=== PATIENT | male | born 1940 | race Caucasian/White ===

== ENCOUNTER → 2017-05-05 | Outpatient (CLI) | payer MEDICARE ==
[~2017-05-05] MED LIST: ACET325T14 PO; ALPR0.25 PO; AMIO200T42 PO; ASPI-515 PO; CALCIUM PO; CARV3.1212 PO; CARV6.252 PO; CLOP75TA22 PO; ERGO400T2 PO; FAMO20TA37 PO; FAMO20TA7 PO; FOSI10TA PO; FURO-93 PO; HYDR-3138 PO; IRON PO; LISI5TAB7 PO; LOSA50TA6 PO; PANT40TA3 PO; POTA10TA90 PO; RIVA15TA PO; SIMV40TA PO; SPIR25TA PO
== END | disposition home or self-care (01) ==
LOC: CFH 06:45
PROVIDERS: ATTEND Internal Medicine Cardiovascular Disease
DX: I08.3 Combined rheumatic disorders of mitral, aortic and tricuspid valves (principal); I10 Essential (primary) hypertension; E78.5 Hyperlipidemia, unspecified; I25.2 Old myocardial infarction; Z95.810 Presence of automatic (implantable) cardiac defibrillator
CPT/HCPCS: 93306

== ENCOUNTER 2018-06-22 12:00 | Inpatient (IN) | payer MEDICARE ==
[~2018-06-22] VITALS: Ht 167.6 cm; Wt 63.4 kg
[~2018-06-22 12:00] MED LIST changes: -CLOP75TA22 PO; +CLOP75TA52 PO; -HYDR-3138 PO; +HYDR-3237 PO; +POTA10TA6 PO; -POTA10TA90 PO
[2018-06-22] MEDS ORDERED: SODIUM CHLORIDE FLUSH 10ML SYR IVF ONE (12:30)
[2018-06-22] MEDS ORDERED: ALBUTEROL/IPRATROPIUM 2.5MG/0.5MG, 3 ML NPPB PRN (12:30)
[2018-06-22] MEDS ORDERED: ALBUTEROL/IPRATROPIUM 2.5MG/0.5MG, 3 ML ONE (12:41)
[2018-06-22 13:12] LABS: BASOPHILS # (AUTO) 0.04 x10^3/uL (0-0.1); BASOPHILS % (AUTO) 0 % (0-1); EOSINOPHILS # (AUTO) 0.14 x10^3/uL (0-0.4); EOSINOPHILS % (AUTO) 2 % (1-7); LYMPHOCYTES # (AUTO) 1.44 x10^3/uL (1-3.4); LYMPHOCYTES % (AUTO) 17 % (22-44); MD NO; MEAN CORPUSCULAR HEMOGLOBIN 29.9 pg (27.5-34.5); MEAN CORPUSCULAR HGB CONC 32.2 g/dL (33.2-36.2); MEAN PLATELET VOLUME 6.4 fL (7.4-10.4); MONOCYTES # (AUTO) 1.02 x10^3/uL (0.2-0.8); MONOCYTES % (AUTO) 12 % (2-9); NEUTROPHILS # (AUTO) 6.08 x10^3/uL (1.8-6.8); NEUTROPHILS % (AUTO) 70 % (42-75); PLATELET COUNT 360 x10^3/uL (130-400); RED BLOOD COUNT 4.02 x10^6/uL (4.38-5.82); RED CELL DISTRIBUTION WIDTH 13.6 % (9.4-14.8)
[2018-06-22 13:21] LABS: ALANINE AMINOTRANSFERASE 9 U/L (12-78); ALBUMIN 2.2 g/dL (3.4-5.0); ANION GAP 5 mmol/L (5-15); CALCIUM 8.1 mg/dL (8.5-10.1); CHLORIDE 113 mmol/L (98-107); CREATININE 1.42 mg/dL (0.7-1.3)
[2018-06-22 13:25] LABS: ALKALINE PHOSPHATASE 66 U/L (45-117); BILIRUBIN,TOTAL 0.3 mg/dL (0.2-1.0); TOTAL PROTEIN 6.2 g/dL (6.4-8.2); TROPONIN I < 0.015 ng/mL (0.000-0.045)
[2018-06-22] MEDS ORDERED: CEFTRIAXONE PMX 1GM/50ML 50 ML ONE (13:37)
[2018-06-22] MEDS ORDERED: CEFTRIAXONE 1,000 MG in SODIUM CHLORIDE 0.9% 50 ML IVPB ONE (14:00)
[2018-06-22] MEDS ORDERED: AZITHROMYCIN 500 MG in SODIUM CHLORIDE 0.9% 250 ML IVPB ONE (14:00)
[2018-06-22] MEDS ORDERED: SODIUM CHLORIDE FLUSH 10ML SYR IVF PRN (14:00)
[2018-06-22] MEDS ORDERED: CEFTRIAXONE 1,000 MG in SODIUM CHLORIDE 0.9% 50 ML IV SCH (15:00)
[2018-06-22] MEDS ORDERED: ONDANSETRON 2MG/ML, 2ML IVPB PRN (15:00)
[2018-06-22] MEDS ORDERED: PHARMACY MAY ADJ FOR RENAL FX MC PRN ×2 (15:00→15:30)
[2018-06-22] MEDS ORDERED: DOCUSATE 100 MG CAPSULE PO PRN (15:00)
[2018-06-22] MEDS ORDERED: ACETAMINOPHEN 325 MG TABLET PO PRN (15:00)
[2018-06-22] MEDS ORDERED: MAGNESIUM SULFATE PMX 2GM/50ML 50 ML IV ONE (15:30)
[2018-06-22] MEDS ORDERED: ALBUTEROL SULFATE 2.5 MG/3 ML NPPB PRN (16:00)
[2018-06-22 16:56] VITALS: BP 136/77
[2018-06-22] MEDS: DOXYCYCLINE 100 MG in DEXTROSE 5% 250 ML IV SCH (18:07)
[2018-06-22] MEDS: HEPARIN 5,000 UNITS/ML, 1ML INJ SCH (18:09)
[2018-06-22] MEDS: FERROUS GLUCONATE 324 MG TABLET PO SCH ×2 (18:14→20:17)
[2018-06-22] MEDS: GUAIFENESIN 200 MG TABLET PO SCH ×2 (18:14→20:19)
[2018-06-22] MEDS: CALCIUM CITRATE 950 MG TABLET PO SCH ×2 (18:19→20:18)
[2018-06-22] MEDS ORDERED: COLE1TAB2 PO (18:25)
[2018-06-22] MEDS ORDERED: LEVO137T3 PO (18:25)
[2018-06-22] MEDS ORDERED: FLUT1AER INH (18:27)
[2018-06-22] MEDS: ALBUTEROL SULFATE 2.5 MG/3 ML NPPB SCH ×2 (19:17→22:00)
[2018-06-22 20:14] VITALS: BP 118/65
[2018-06-22] MEDS: CHOLECALCIFEROL 400 UNITS TABLET PO SCH (20:18)
[2018-06-22] MEDS: SIMVASTATIN 40 MG TABLET PO SCH (20:20)
[2018-06-22] MEDS: CARVEDILOL 6.25 MG TABLET PO SCH (20:20)
[2018-06-22] MEDS: ZOLPIDEM 5MG TABLET PO PRN (20:36)
[2018-06-23 01:41] VITALS: BP 124/75
[2018-06-23] MEDS: HEPARIN 5,000 UNITS/ML, 1ML INJ SCH ×3 (01:42→17:16)
[2018-06-23] MEDS: GUAIFENESIN 200 MG TABLET PO SCH ×4 (05:19→20:51)
[2018-06-23] MEDS: CALCIUM CITRATE 950 MG TABLET PO SCH ×4 (05:19→20:51)
[2018-06-23] MEDS: DOXYCYCLINE 100 MG in DEXTROSE 5% 250 ML IV SCH ×2 (05:20→17:16)
[2018-06-23 06:00] LABS: BASOPHILS # (AUTO) 0.01 x10^3/uL (0-0.1); BASOPHILS % (AUTO) 0 % (0-1); EOSINOPHILS % (AUTO) 0 % (1-7); LYMPHOCYTES % (AUTO) 16 % (22-44); MD NO; MEAN CORPUSCULAR HEMOGLOBIN 30.1 pg (27.5-34.5); MEAN CORPUSCULAR HGB CONC 32.7 g/dL (33.2-36.2); MEAN CORPUSCULAR VOLUME 92.3 fL (81-97); MEAN PLATELET VOLUME 6.8 fL (7.4-10.4); MONOCYTES % (AUTO) 4 % (2-9); NEUTROPHILS # (AUTO) 5.81 x10^3/uL (1.8-6.8); NEUTROPHILS % (AUTO) 79 % (42-75); PLATELET COUNT 331 x10^3/uL (130-400); RED BLOOD COUNT 3.73 x10^6/uL (4.38-5.82); RED CELL DISTRIBUTION WIDTH 13.6 % (9.4-14.8)
[2018-06-23 06:10] LABS: ANION GAP 6 mmol/L (5-15); CALCIUM 8.2 mg/dL (8.5-10.1); CHLORIDE 112 mmol/L (98-107)
[2018-06-23 06:11] LABS: CREATININE 1.23 mg/dL (0.7-1.3)
[2018-06-23] MEDS: ALBUTEROL SULFATE 2.5 MG/3 ML NPPB SCH ×5 (06:35→22:00)
[2018-06-23 06:57] VITALS: BP 128/76
[2018-06-23] MEDS ORDERED: FUROSEMIDE 20 MG TABLET PO SCH (09:00)
[2018-06-23] MEDS: CARVEDILOL 6.25 MG TABLET PO SCH ×2 (09:07→20:52)
[2018-06-23] MEDS: CHOLECALCIFEROL 400 UNITS TABLET PO SCH ×2 (09:07→20:51)
[2018-06-23] MEDS: CLOPIDOGREL 75 MG TABLET PO SCH (09:07)
[2018-06-23] MEDS: AMIODARONE 200 MG TABLET PO SCH (09:07)
[2018-06-23] MEDS: LOSARTAN 50MG TABLET PO SCH (09:07)
[2018-06-23] MEDS: FERROUS GLUCONATE 324 MG TABLET PO SCH ×3 (09:07→20:52)
[2018-06-23] MEDS: FAMOTIDINE 20 MG TABLET PO SCH (09:08)
[2018-06-23] MEDS: CEFTRIAXONE 1,000 MG in SODIUM CHLORIDE 0.9% 50 ML IV SCH (13:57)
[2018-06-23 14:12] VITALS: BP 125/74
[2018-06-23 20:03] VITALS: BP 141/70
[2018-06-23] MEDS: SIMVASTATIN 40 MG TABLET PO SCH (20:51)
[2018-06-23 21:54] VITALS: BP 138/71
[2018-06-23] MEDS: ZOLPIDEM 5MG TABLET PO PRN (21:55)
[2018-06-24 01:15] VITALS: BP 119/67
[2018-06-24] MEDS: HEPARIN 5,000 UNITS/ML, 1ML INJ SCH ×3 (01:48→17:17)
[2018-06-24] MEDS: GUAIFENESIN 200 MG TABLET PO SCH ×4 (05:36→20:42)
[2018-06-24] MEDS: CALCIUM CITRATE 950 MG TABLET PO SCH ×4 (05:36→20:43)
[2018-06-24] MEDS: DOXYCYCLINE 100 MG in DEXTROSE 5% 250 ML IV SCH (05:36)
[2018-06-24 05:57] LABS: BASOPHILS # (AUTO) 0.02 x10^3/uL (0-0.1); BASOPHILS % (AUTO) 0 % (0-1); EOSINOPHILS # (AUTO) 0.01 x10^3/uL (0-0.4); EOSINOPHILS % (AUTO) 0 % (1-7); LYMPHOCYTES # (AUTO) 1.01 x10^3/uL (1-3.4); LYMPHOCYTES % (AUTO) 8 % (22-44); MD NO; MEAN CORPUSCULAR HEMOGLOBIN 30.6 pg (27.5-34.5); MEAN CORPUSCULAR HGB CONC 32.9 g/dL (33.2-36.2); MEAN CORPUSCULAR VOLUME 92.9 fL (81-97); MEAN PLATELET VOLUME 6.8 fL (7.4-10.4); MONOCYTES # (AUTO) 0.28 x10^3/uL (0.2-0.8); MONOCYTES % (AUTO) 2 % (2-9); NEUTROPHILS % (AUTO) 90 % (42-75); PLATELET COUNT 335 x10^3/uL (130-400); RED BLOOD COUNT 3.78 x10^6/uL (4.38-5.82); RED CELL DISTRIBUTION WIDTH 13.4 % (9.4-14.8)
[2018-06-24 05:58] LABS: ANION GAP 4 mmol/L (5-15); CALCIUM 8.4 mg/dL (8.5-10.1); CHLORIDE 111 mmol/L (98-107)
[2018-06-24 06:52] VITALS: BP 169/73
[2018-06-24] MEDS: ALBUTEROL SULFATE 2.5 MG/3 ML NPPB SCH ×4 (07:30→20:10)
[2018-06-24] MEDS: FERROUS GLUCONATE 324 MG TABLET PO SCH ×3 (09:58→20:46)
[2018-06-24] MEDS: FAMOTIDINE 20 MG TABLET PO SCH (09:58)
[2018-06-24] MEDS: LOSARTAN 50MG TABLET PO SCH (09:58)
[2018-06-24] MEDS: CLOPIDOGREL 75 MG TABLET PO SCH (09:58)
[2018-06-24] MEDS: CHOLECALCIFEROL 400 UNITS TABLET PO SCH ×2 (09:58→20:42)
[2018-06-24] MEDS: CARVEDILOL 6.25 MG TABLET PO SCH ×2 (09:58→20:42)
[2018-06-24] MEDS: AMIODARONE 200 MG TABLET PO SCH (09:59)
[2018-06-24] MEDS: CEFTRIAXONE 1,000 MG in SODIUM CHLORIDE 0.9% 50 ML IV SCH (14:25)
[2018-06-24 15:00] VITALS: BP 145/77
[2018-06-24 20:24] VITALS: BP 148/84
[2018-06-24] MEDS: SIMVASTATIN 40 MG TABLET PO SCH (20:42)
[2018-06-24] MEDS: DOXYCYCLINE 100MG TABLET PO SCH (20:43)
[2018-06-24] MEDS: ZOLPIDEM 5MG TABLET PO PRN (21:46)
[2018-06-25] MEDS: HEPARIN 5,000 UNITS/ML, 1ML INJ SCH ×2 (02:41→10:45)
[2018-06-25 03:51] VITALS: BP 127/68
[2018-06-25] MEDS: CALCIUM CITRATE 950 MG TABLET PO SCH ×2 (05:59→10:45)
[2018-06-25] MEDS: GUAIFENESIN 200 MG TABLET PO SCH ×2 (05:59→10:45)
[2018-06-25] MEDS: ALBUTEROL SULFATE 2.5 MG/3 ML NPPB SCH ×3 (07:00→15:10)
[2018-06-25 08:57] VITALS: BP 146/73
[2018-06-25] MEDS: LOSARTAN 50MG TABLET PO SCH (08:59)
[2018-06-25] MEDS: FERROUS GLUCONATE 324 MG TABLET PO SCH (08:59)
[2018-06-25] MEDS: CHOLECALCIFEROL 400 UNITS TABLET PO SCH (08:59)
[2018-06-25] MEDS: CLOPIDOGREL 75 MG TABLET PO SCH (08:59)
[2018-06-25] MEDS: CARVEDILOL 6.25 MG TABLET PO SCH (09:00)
[2018-06-25] MEDS: FAMOTIDINE 20 MG TABLET PO SCH (09:00)
[2018-06-25] MEDS: AMIODARONE 200 MG TABLET PO SCH (09:00)
[2018-06-25] MEDS: DOXYCYCLINE 100MG TABLET PO SCH (09:00)
[2018-06-25] MEDS ORDERED: CEFD300C37 PO (14:15)
[2018-06-25] MEDS ORDERED: PRED20TA PO (14:15)
[2018-06-25] MEDS ORDERED: DOXY100T PO (14:15)
[2018-06-25 14:19] VITALS: BP 127/72
[2018-06-25] MEDS: CEFTRIAXONE 1,000 MG in SODIUM CHLORIDE 0.9% 50 ML IV SCH (14:20)
== END 2018-06-25 16:45 | disposition home or self-care (01) | DRG 291 ==
LOC: ED 13:20 → EDIP 13:44 → 5SO 16:44
PROVIDERS: ADMIT Hospitalist; ATTEND Hospitalist
DX: I13.0 Hypertensive heart and chronic kidney disease with heart failure and stage 1 through stage 4 chronic kidney disease, or unspecified chronic kidney disease (principal); N17.0 Acute kidney failure with tubular necrosis; J96.01 Acute respiratory failure with hypoxia; I50.21 Acute systolic (congestive) heart failure; J15.9 Unspecified bacterial pneumonia; J44.0 Chronic obstructive pulmonary disease with (acute) lower respiratory infection; E44.0 Moderate protein-calorie malnutrition; J44.1 Chronic obstructive pulmonary disease with (acute) exacerbation; I25.5 Ischemic cardiomyopathy; I25.2 Old myocardial infarction; I48.0 Paroxysmal atrial fibrillation; I73.9 Peripheral vascular disease, unspecified; E74.39 Other disorders of intestinal carbohydrate absorption; M19.90 Unspecified osteoarthritis, unspecified site; D63.8 Anemia in other chronic diseases classified elsewhere; T38.0X5A Adverse effect of glucocorticoids and synthetic analogues, initial encounter; I08.3 Combined rheumatic disorders of mitral, aortic and tricuspid valves; N18.9 Chronic kidney disease, unspecified; D72.829 Elevated white blood cell count, unspecified; I25.10 Atherosclerotic heart disease of native coronary artery without angina pectoris; Z68.22 Body mass index [BMI] 22.0-22.9, adult; Z88.0 Allergy status to penicillin; Z88.8 Allergy status to other drugs, medicaments and biological substances; Z90.49 Acquired absence of other specified parts of digestive tract; Z95.810 Presence of automatic (implantable) cardiac defibrillator; Z87.891 Personal history of nicotine dependence; Z82.49 Family history of ischemic heart disease and other diseases of the circulatory system; Z83.3 Family history of diabetes mellitus; Z85.46 Personal history of malignant neoplasm of prostate; Z87.11 Personal history of peptic ulcer disease; Y92.89 Other specified places as the place of occurrence of the external cause; Z90.79 Acquired absence of other genital organ(s); Z79.899 Other long term (current) drug therapy
CPT/HCPCS: 36415; 71046; 80048; 80053; 83605; 83735; 83880; 84145; 84484; 85025; 87040; 87205; 93005; 93306; 94640; J0456; J0696; J1644; J7060; J7613; J7620; J3475; J7050; J7512

== ENCOUNTER 2018-09-27 10:15 | Inpatient (IN) | payer MEDICARE ==
[~2018-09-27] VITALS: Ht 167.6 cm; Wt 50.0 kg
[~2018-09-27 10:15] MED LIST changes: +CEFD300C37 PO; +COLE1TAB2 PO; +DOXY100T PO; +FLUT1AER INH; +LEVO137T3 PO; -LOSA50TA6 PO; +LOSA50TA7 PO; +PRED20TA PO
[2018-09-27] MEDS ORDERED: SODIUM CHLORIDE FLUSH 10ML SYR IVF ONE (11:00)
[2018-09-27 11:44] LABS: BASOPHILS # (AUTO) 0.01 x10^3/uL (0-0.1); BASOPHILS % (AUTO) 0 % (0-1); EOSINOPHILS % (AUTO) 0 % (1-7); LYMPHOCYTES # (AUTO) 1.13 x10^3/uL (1-3.4); LYMPHOCYTES % (AUTO) 8 % (22-44); MD NO; MEAN CORPUSCULAR HEMOGLOBIN 29.5 pg (27.5-34.5); MEAN CORPUSCULAR HGB CONC 32.9 g/dL (33.2-36.2); MEAN CORPUSCULAR VOLUME 89.5 fL (81-97); MONOCYTES # (AUTO) 0.14 x10^3/uL (0.2-0.8); MONOCYTES % (AUTO) 1 % (2-9); NEUTROPHILS # (AUTO) 12.84 x10^3/uL (1.8-6.8); NEUTROPHILS % (AUTO) 91 % (42-75); PLATELET COUNT 120 x10^3/uL (130-400); RED BLOOD COUNT 4.41 x10^6/uL (4.38-5.82); RED CELL DISTRIBUTION WIDTH 16.3 % (9.4-14.8)
[2018-09-27 11:58] LABS: ALANINE AMINOTRANSFERASE 32 U/L (12-78); ALBUMIN 2.9 g/dL (3.4-5.0); ANION GAP 8 mmol/L (5-15); CALCIUM 8.6 mg/dL (8.5-10.1); CHLORIDE 113 mmol/L (98-107); CREATININE 1.65 mg/dL (0.7-1.3)
[2018-09-27 12:02] LABS: ALKALINE PHOSPHATASE 71 U/L (45-117); TROPONIN I 0.056 ng/mL (0.000-0.045)
[2018-09-27] MEDS ORDERED: PRED20TA PO (13:02)
[2018-09-27] MEDS ORDERED: TRELOGY INH (13:02)
[2018-09-27] MEDS ORDERED: SODIUM CHLORIDE 0.9% 1,000 ML IV SCH (15:04)
[2018-09-27 15:27] VITALS: BP 174/76
[2018-09-27] MEDS ORDERED: POLYETHYLENE GLYCOL 17 GM PACKET PO PRN (15:30)
[2018-09-27] MEDS ORDERED: ACETAMINOPHEN 325 MG TABLET PO PRN (15:30)
[2018-09-27] MEDS ORDERED: ONDANSETRON 2MG/ML, 2ML IVPush PRN (15:30)
[2018-09-27] MEDS ORDERED: BISACODYL 10 MG SUPP PR PRN (15:30)
[2018-09-27] MEDS ORDERED: ONDANSETRON ODT 4 MG PO PRN (15:30)
[2018-09-27] MEDS: HEPARIN 5,000 UNITS/ML, 1ML SQ SCH (16:53)
[2018-09-27] MEDS: SODIUM CHLORIDE 0.9% 1,000 ML IV SCH (16:53)
[2018-09-27] MEDS: hydrALAzine 20 MG/ML, 1ML IVPush PRN (16:53)
[2018-09-27 17:33] LABS: INTERNATIONAL NORMALIZED RATIO 1.05 (0.93-1.1); PROTHROMBIN TIME 11.1 Seconds (9.6-11.5)
[2018-09-27 17:45] LABS: THYROID STIMULATING HORMONE 0.013 mIU/L (0.358-3.740)
[2018-09-27] MEDS: CARVEDILOL 6.25 MG TABLET PO SCH (18:05)
[2018-09-27 18:08] VITALS: BP 156/69
[2018-09-27 18:12] LABS: O2 FLOW ROOM AIR L/min
[2018-09-27 18:44] LABS: HEMOGLOBIN A1C 7.2 % (4.2-6.3)
[2018-09-27] MEDS ORDERED: ALBUTEROL SULFATE 2.5MG/0.5ML ONE (19:27)
[2018-09-27] MEDS ORDERED: ALBUTEROL SULFATE 2.5 MG/3 ML ONE (19:28)
[2018-09-27 20:20] VITALS: BP 113/70
[2018-09-27] MEDS ORDERED: HYDROXYZINE PAMOATE 50MG CAP PO PRN (20:30)
[2018-09-27] MEDS: CHOLECALCIFEROL 400 UNITS TABLET PO SCH (20:39)
[2018-09-27] MEDS: ATORVASTATIN 20 MG TABLET PO SCH (20:39)
[2018-09-27] MEDS ORDERED: SIMVASTATIN 40 MG TABLET PO SCH (21:00)
[2018-09-27 21:26] LABS: TROPONIN I 0.054 ng/mL (0.000-0.045)
[2018-09-28] MEDS: HEPARIN 5,000 UNITS/ML, 1ML SQ SCH ×3 (00:13→16:26)
[2018-09-28 01:16] VITALS: BP 113/60
[2018-09-28] MEDS: LEVOTHYROXINE 137 MCG TABLET PO SCH (05:44)
[2018-09-28] MEDS: CARVEDILOL 6.25 MG TABLET PO SCH ×2 (05:44→16:26)
[2018-09-28] MEDS: SODIUM CHLORIDE 0.9% 1,000 ML IV SCH (05:45)
[2018-09-28 05:58] LABS: BASOPHILS # (AUTO) 0.02 x10^3/uL (0-0.1); BASOPHILS % (AUTO) 0 % (0-1); EOSINOPHILS % (AUTO) 0 % (1-7); LYMPHOCYTES # (AUTO) 1.24 x10^3/uL (1-3.4); LYMPHOCYTES % (AUTO) 11 % (22-44); MD NO; MEAN CORPUSCULAR HEMOGLOBIN 29.6 pg (27.5-34.5); MEAN CORPUSCULAR HGB CONC 33.1 g/dL (33.2-36.2); MEAN CORPUSCULAR VOLUME 89.5 fL (81-97); MEAN PLATELET VOLUME 7.1 fL (7.4-10.4); MONOCYTES # (AUTO) 0.64 x10^3/uL (0.2-0.8); MONOCYTES % (AUTO) 6 % (2-9); NEUTROPHILS # (AUTO) 9.67 x10^3/uL (1.8-6.8); NEUTROPHILS % (AUTO) 84 % (42-75); PLATELET COUNT 109 x10^3/uL (130-400); RED BLOOD COUNT 3.92 x10^6/uL (4.38-5.82); RED CELL DISTRIBUTION WIDTH 16.4 % (9.4-14.8)
[2018-09-28 06:11] LABS: ANION GAP 7 mmol/L (5-15); CHLORIDE 116 mmol/L (98-107)
[2018-09-28 06:15] LABS: CHOL/HDL RATIO 2.6; CHOLESTEROL, TOTAL 139 mg/dL (140-239); CREATININE 1.48 mg/dL (0.7-1.3); HDL CHOL % 39 % (26-37); HDL CHOLESTEROL (DIRECT) 54 mg/dL (40-60); LDL CHOLESTEROL,CALCULATED 63 mg/dL (54-169); LDL/HDL RATIO 1.2 (0.5-3.0); TRIGLYCERIDES 110 mg/dL (50-200); VLDL CHOLESTEROL 22 mg/dL (0-25)
[2018-09-28] MEDS ORDERED: ALBUTEROL/IPRATROPIUM 2.5MG/0.5MG, 3 ML ONE (06:32)
[2018-09-28] MEDS: ALBUTEROL/IPRATROPIUM 2.5MG/0.5MG, 3 ML NPPB SCH ×2 (06:41→20:16)
[2018-09-28 07:13] VITALS: BP 128/73
[2018-09-28] MEDS: AMIODARONE 200 MG TABLET PO SCH (07:54)
[2018-09-28] MEDS: CHOLECALCIFEROL 400 UNITS TABLET PO SCH ×2 (07:54→20:51)
[2018-09-28] MEDS: CLOPIDOGREL 75 MG TABLET PO SCH (07:54)
[2018-09-28] MEDS: FAMOTIDINE 20 MG TABLET PO SCH (07:55)
[2018-09-28] MEDS: LOSARTAN 50MG TABLET PO SCH (07:55)
[2018-09-28] MEDS ORDERED: LOPERAMIDE 2 MG CAPSULE PO PRN (12:00)
[2018-09-28 12:51] VITALS: BP 135/78
[2018-09-28] MEDS ORDERED: SODIUM CHLORIDE 0.9% 1,000 ML IV SCH (15:04)
[2018-09-28 16:25] VITALS: BP 169/68
[2018-09-28 19:41] VITALS: BP 154/70
[2018-09-28] MEDS: ATORVASTATIN 20 MG TABLET PO SCH (20:51)
[2018-09-29] MEDS: HEPARIN 5,000 UNITS/ML, 1ML SQ SCH ×3 (00:31→17:29)
[2018-09-29 01:06] VITALS: BP 150/75
[2018-09-29 05:40] LABS: CALCIUM 8.3 mg/dL (8.5-10.1); CHLORIDE 115 mmol/L (98-107)
[2018-09-29 05:45] LABS: ALANINE AMINOTRANSFERASE 25 U/L (12-78); ALBUMIN 2.4 g/dL (3.4-5.0); ALKALINE PHOSPHATASE 56 U/L (45-117); ANION GAP 6 mmol/L (5-15); BILIRUBIN,TOTAL 0.7 mg/dL (0.2-1.0); CREATININE 1.29 mg/dL (0.7-1.3); TOTAL PROTEIN 4.9 g/dL (6.4-8.2)
[2018-09-29 06:05] VITALS: BP 163/78
[2018-09-29] MEDS: CARVEDILOL 6.25 MG TABLET PO SCH ×2 (06:07→17:29)
[2018-09-29] MEDS: LEVOTHYROXINE 137 MCG TABLET PO SCH (06:07)
[2018-09-29] MEDS: ALBUTEROL/IPRATROPIUM 2.5MG/0.5MG, 3 ML NPPB SCH ×2 (06:32→19:41)
[2018-09-29 06:51] VITALS: BP 121/63
[2018-09-29 08:30] LABS: BASOPHILS # (AUTO) 0.01 x10^3/uL (0-0.1); BASOPHILS % (AUTO) 0 % (0-1); EOSINOPHILS # (AUTO) 0.01 x10^3/uL (0-0.4); EOSINOPHILS % (AUTO) 0 % (1-7); LYMPHOCYTES # (AUTO) 1.09 x10^3/uL (1-3.4); LYMPHOCYTES % (AUTO) 11 % (22-44); MD NO; MEAN CORPUSCULAR HEMOGLOBIN 29.3 pg (27.5-34.5); MEAN CORPUSCULAR HGB CONC 32.6 g/dL (33.2-36.2); MEAN CORPUSCULAR VOLUME 89.9 fL (81-97); MEAN PLATELET VOLUME 7.7 fL (7.4-10.4); MONOCYTES # (AUTO) 0.42 x10^3/uL (0.2-0.8); MONOCYTES % (AUTO) 4 % (2-9); NEUTROPHILS # (AUTO) 8.83 x10^3/uL (1.8-6.8); NEUTROPHILS % (AUTO) 85 % (42-75); PLATELET COUNT 102 x10^3/uL (130-400); RED BLOOD COUNT 3.79 x10^6/uL (4.38-5.82); RED CELL DISTRIBUTION WIDTH 16.7 % (9.4-14.8)
[2018-09-29] MEDS: AMIODARONE 200 MG TABLET PO SCH (09:00)
[2018-09-29] MEDS: CHOLECALCIFEROL 400 UNITS TABLET PO SCH ×2 (09:00→21:18)
[2018-09-29] MEDS: CLOPIDOGREL 75 MG TABLET PO SCH (09:00)
[2018-09-29] MEDS: LOSARTAN 50MG TABLET PO SCH (09:00)
[2018-09-29] MEDS: FAMOTIDINE 20 MG TABLET PO SCH (09:00)
[2018-09-29] MEDS ORDERED: LIDOCAINE/PF 1%, 30ML ONE (09:40)
[2018-09-29] MEDS ORDERED: FENTANYL PF 100 MCG/2ML ONE (09:40)
[2018-09-29] MEDS ORDERED: MIDAZOLAM 1 MG/ML, 5ML ONE (09:40)
[2018-09-29 11:15] VITALS: BP 160/84
[2018-09-29] MEDS: hydrALAzine 20 MG/ML, 1ML IVPush PRN (11:23)
[2018-09-29 13:09] VITALS: BP 125/89
[2018-09-29] MEDS: FUROSEMIDE 20 MG TABLET PO SCH (15:39)
[2018-09-29] MEDS: ATORVASTATIN 20 MG TABLET PO SCH (21:17)
[2018-09-29 21:31] VITALS: BP 137/70
[2018-09-30] MEDS: HEPARIN 5,000 UNITS/ML, 1ML SQ SCH ×3 (02:17→21:34)
[2018-09-30 02:29] VITALS: BP 141/79
[2018-09-30] MEDS: LEVOTHYROXINE 50 MCG TABLET PO SCH (05:28)
[2018-09-30] MEDS: CARVEDILOL 6.25 MG TABLET PO SCH ×2 (05:28→17:27)
[2018-09-30 07:34] LABS: MEAN CORPUSCULAR HEMOGLOBIN 29.7 pg (27.5-34.5); MEAN CORPUSCULAR HGB CONC 33.3 g/dL (33.2-36.2); MEAN CORPUSCULAR VOLUME 89.1 fL (81-97); RED BLOOD COUNT 4.07 x10^6/uL (4.38-5.82); RED CELL DISTRIBUTION WIDTH 16.5 % (9.4-14.8)
[2018-09-30 07:43] LABS: ALBUMIN 2.4 g/dL (3.4-5.0); ANION GAP 7 mmol/L (5-15); CALCIUM 8.4 mg/dL (8.5-10.1); CHLORIDE 112 mmol/L (98-107)
[2018-09-30 07:46] LABS: ALANINE AMINOTRANSFERASE 27 U/L (12-78); ALKALINE PHOSPHATASE 64 U/L (45-117); BILIRUBIN,TOTAL 0.9 mg/dL (0.2-1.0); CREATININE 1.62 mg/dL (0.7-1.3); TOTAL PROTEIN 5.2 g/dL (6.4-8.2)
[2018-09-30 07:47] VITALS: BP 135/63
[2018-09-30 08:19] LABS: MD SCAN
[2018-09-30 08:20] LABS: BASOPHILS # (AUTO) 0.07 x10^3/uL (0-0.1); BASOPHILS % (AUTO) 1 % (0-1); EOSINOPHILS # (AUTO) 0.13 x10^3/uL (0-0.4); EOSINOPHILS % (AUTO) 1 % (1-7); LYMPHOCYTES # (AUTO) 1.17 x10^3/uL (1-3.4); LYMPHOCYTES % (AUTO) 11 % (22-44); MONOCYTES # (AUTO) 0.43 x10^3/uL (0.2-0.8); MONOCYTES % (AUTO) 4 % (2-9); NEUTROPHILS % (AUTO) 84 % (42-75); PLATELET COUNT 98 x10^3/uL (130-400)
[2018-09-30] MEDS: FUROSEMIDE 20 MG TABLET PO SCH (08:54)
[2018-09-30] MEDS: AMIODARONE 200 MG TABLET PO SCH (08:54)
[2018-09-30] MEDS: FAMOTIDINE 20 MG TABLET PO SCH (08:54)
[2018-09-30] MEDS: CLOPIDOGREL 75 MG TABLET PO SCH (08:54)
[2018-09-30] MEDS: LOSARTAN 50MG TABLET PO SCH (08:55)
[2018-09-30] MEDS: CHOLECALCIFEROL 400 UNITS TABLET PO SCH ×2 (08:55→21:34)
[2018-09-30] MEDS: ALBUTEROL/IPRATROPIUM 2.5MG/0.5MG, 3 ML NPPB SCH ×2 (10:10→20:52)
[2018-09-30 12:47] VITALS: BP 119/69
[2018-09-30 19:26] VITALS: BP 110/59
[2018-09-30] MEDS: ATORVASTATIN 20 MG TABLET PO SCH (21:34)
[2018-10-01 01:08] VITALS: BP 109/62
[2018-10-01] MEDS: HEPARIN 5,000 UNITS/ML, 1ML SQ SCH (05:09)
[2018-10-01] MEDS: LEVOTHYROXINE 50 MCG TABLET PO SCH (05:10)
[2018-10-01] MEDS: CARVEDILOL 6.25 MG TABLET PO SCH (05:10)
[2018-10-01 07:20] VITALS: BP 125/69
[2018-10-01] MEDS: FUROSEMIDE 20 MG TABLET PO SCH (08:01)
[2018-10-01] MEDS: CHOLECALCIFEROL 400 UNITS TABLET PO SCH (08:01)
[2018-10-01] MEDS: LOSARTAN 50MG TABLET PO SCH (08:01)
[2018-10-01] MEDS: CLOPIDOGREL 75 MG TABLET PO SCH (08:01)
[2018-10-01] MEDS: FAMOTIDINE 20 MG TABLET PO SCH (08:01)
[2018-10-01] MEDS: AMIODARONE 200 MG TABLET PO SCH (08:02)
[2018-10-01] MEDS ORDERED: DOXYCYCLINE 100MG TABLET PO SCH (09:00)
[2018-10-01] MEDS: ALBUTEROL/IPRATROPIUM 2.5MG/0.5MG, 3 ML NPPB SCH (09:55)
[2018-10-01] MEDS ORDERED: PRED20TA PO (11:22)
[2018-10-01] MEDS ORDERED: DOXY100T PO (11:22)
[2018-10-01] MEDS ORDERED: FURO-93 PO (11:24)
[2018-10-01] MEDS ORDERED: LEVO50TA PO (11:26)
== END 2018-10-01 13:48 | disposition home or self-care (01) | DRG 286 ==
LOC: ED 14:02 → 4WST 14:03 → ED 14:13 → 5SO 09-29 10:36
PROVIDERS: ADMIT Internal Medicine; ATTEND Internal Medicine
PROC: 4A023N6 Measurement of Cardiac Sampling and Pressure, Right Heart, Percutaneous Approach (ICD-10-PCS; principal; 2018-09-29)
DX: I27.20 Pulmonary hypertension, unspecified (principal); J96.00 Acute respiratory failure, unspecified whether with hypoxia or hypercapnia; J18.9 Pneumonia, unspecified organism; I24.8 Other forms of acute ischemic heart disease; I13.0 Hypertensive heart and chronic kidney disease with heart failure and stage 1 through stage 4 chronic kidney disease, or unspecified chronic kidney disease; N17.9 Acute kidney failure, unspecified; E44.0 Moderate protein-calorie malnutrition; E87.0 Hyperosmolality and hypernatremia; E87.1 Hypo-osmolality and hyponatremia; J44.0 Chronic obstructive pulmonary disease with (acute) lower respiratory infection; J44.1 Chronic obstructive pulmonary disease with (acute) exacerbation; I25.5 Ischemic cardiomyopathy; D63.8 Anemia in other chronic diseases classified elsewhere; E03.9 Hypothyroidism, unspecified; E74.39 Other disorders of intestinal carbohydrate absorption; E78.5 Hyperlipidemia, unspecified; E86.1 Hypovolemia; I07.1 Rheumatic tricuspid insufficiency; I25.10 Atherosclerotic heart disease of native coronary artery without angina pectoris; I25.2 Old myocardial infarction; I35.0 Nonrheumatic aortic (valve) stenosis; I48.91 Unspecified atrial fibrillation; I50.9 Heart failure, unspecified; I73.9 Peripheral vascular disease, unspecified; N18.9 Chronic kidney disease, unspecified; Z79.02 Long term (current) use of antithrombotics/antiplatelets; Z82.49 Family history of ischemic heart disease and other diseases of the circulatory system; Z85.46 Personal history of malignant neoplasm of prostate; Z83.3 Family history of diabetes mellitus; Z86.79 Personal history of other diseases of the circulatory system; Z87.01 Personal history of pneumonia (recurrent); Z87.891 Personal history of nicotine dependence; Z90.79 Acquired absence of other genital organ(s); Z99.81 Dependence on supplemental oxygen; Z95.810 Presence of automatic (implantable) cardiac defibrillator
CPT/HCPCS: 36415; 36600; 71045; 71250; 78582; 80048; 80053; 80061; 82803; 83036; 83605; 83735; 84100; 84145; 84443; 84484; 85025; 85610; 87040; 93005; 93306; 93451; 94640; 99285; C1769; C1894; G0378; J1644; J2250; J3010; J3490; J7620; A9540; A9558; C9898; J0360; J7030; J7512; Q0177